=== PATIENT | male | born 1930 | race Caucasian/White ===

== ENCOUNTER 2018-02-04 14:46 | Outpatient (CLI) | payer MEDICARE ==
--- NOTE | 2018-02-04 15:25 | RAD ---
LEFT FOREARM TWO VIEWS: History: Left forearm pain. Evaluate for foreign body. FINDINGS/IMPRESSION: The left radius and ulna are intact. No radiopaque foreign body is seen. POS: [id number]
== END 2018-02-04 14:47 | disposition home or self-care (01) ==
LOC: RAD-FRANK 14:46
PROVIDERS: ATTEND Nurse Practitioner Family
DX: M79.632 Pain in left forearm (principal)